=== PATIENT | female | born 1930 | race Caucasian/White ===

== ENCOUNTER → 2017-07-19 | Outpatient (CLI) | payer OTHER ==
[~2017-07-19] MED LIST: ANTIBIOTIC; ARICEPT 5 MG TAB5 MG PO; ASPIRIN EC81 M1 PO; CALCIUM 600 +1 EAC1 PO; CARDIZEM CD240 MG PO; CEFDINIR300 MG PO; CEFUROXIME500 MG PO; ELIQUIS5 MG PO; LASIX 40 MG TAB40 M2 PO; LEVOTHYROXINE100 MC1 PO; LOPRESSOR50 PO; LOVASTAT20 PO; PLAVIX 75 MG TA75 MG PO; POTASSIUM20 PO; PRAVACHOL40 MG PO; PRILOSEC 20 MG20 MG PO; PRINZIDE 20-121 EACH PO; PROCHAMBER1 EACH INH; SYMBICORT160 MCG/4. INH; TIROSINT75 MCG PO; ZYRTEC10 M5 PO; [UNRECOGNIZED DRUG - OTHER]
== END ==
LOC: M.RAD 11:41
DX: J45.40 Moderate persistent asthma, uncomplicated (principal)

== ENCOUNTER 2017-09-11 16:26 | Inpatient (IN) | payer OTHER ==
[~2017-09-11] VITALS: Ht 162.6 cm; Wt 75.7 kg
[~2017-09-11 16:26] MED LIST changes: -ANTIBIOTIC; -ARICEPT 5 MG TAB5 MG PO; -CEFDINIR300 MG PO; -CEFUROXIME500 MG PO; -PROCHAMBER1 EACH INH; -SYMBICORT160 MCG/4. INH; -[UNRECOGNIZED DRUG - OTHER]
[2017-09-11 16:30] VITALS: BP 149/87
--- NOTE | 2017-09-11 16:37 | NUR ---
PT STATES SHE LIVES BY HERSELF HER CHOICE, PT IS BROUGHT IN BY GEMA. STATES SHE HAS 2 SONS. GEMA SETS UP HER MEDS EVERYDAY AND NORMALLY PT DOES FINE PER PT AND FAMILY.
[2017-09-11 16:47] LABS: ABSOLUTE BASOPHILS 0.1 thou/uL (0.0-0.2); ABSOLUTE EOSINOPHILS 0.1 thou/uL (0.0-0.7); ABSOLUTE LYMPHOCYTES 1.5 thou/uL (0.8-5.3); ABSOLUTE NEUTROPHILS 5.5 thou/uL (1.6-8.1); BASOPHILS 1.2 %; EOSINOPHILS 1.2 %; HEMATOCRIT 41.9 % (37.0-47.0); HEMOGLOBIN 13.9 gm/dL (12.0-15.0); LYMPHOCYTES 18.4 %; MCH 29.1 pg (26.0-34.0); MCHC 33.2 g/dL (28.0-37.0); MCV 87.7 fL (80.0-100.0); MONOCYTES 11.9 %; MPV 12.9 fl. (7.2-11.1); NUCLEATED RBCS 0 /100WBC; PLATELET COUNT* 102 thou/uL (150-400); POLYS 67.3 %; RBC 4.78 mil/uL (4.20-5.00); RDW-CV 13.9 % (10.5-14.5); WBC 8.1 thou/uL (4.0-11.0)
[2017-09-11] MEDS ORDERED: PROCHAMBER1 EACH INH (16:50)
[2017-09-11] MEDS ORDERED: ANTIBIOTIC (16:51)
[2017-09-11] MEDS ORDERED: [UNRECOGNIZED DRUG - OTHER] (16:51)
[2017-09-11 16:56] LABS: ANION GAP 13 mmol/L (7-16); BUN 17 mg/dL (7-18); CALCIUM 8.9 mg/dL (8.5-10.1); CHLORIDE 99 mmol/L (98-107); CO2 25 mmol/L (21-32); CREATININE 1.5 mg/dL (0.6-1.3); GLUCOSE 115 mg/dL (70-99); POTASSIUM 3.4 mmol/L (3.5-5.1); SODIUM 137 mmol/L (136-145)
[2017-09-11 16:57] LABS: APTT 35.2 Seconds (25.0-31.3); INR 1.1; PROTIME 10.7 Seconds (9.20-11.50)
[2017-09-11 17:17] LABS: ALBUMIN 3.1 g/dL (3.4-5.0); ALKALINE PHOSPHATASE 117 U/L (46-116); CK-MB MASS 4.3 ng/mL (<0.5-3.6); NT-PRO BRAIN NAT PEPTIDE 2358 pg/mL (<300); SGOT 22 U/L (15-37); SGPT 16 U/L (30-65); TOTAL BILIRUBIN 0.9 mg/dL (<0.1-1.0); TOTAL PROTEIN 7.2 g/dL (6.4-8.2); TROPONIN-I LEVEL <0.06 ng/mL (<0.06)
[2017-09-11 18:10] VITALS: BP 153/92
[2017-09-11 18:15] VITALS: BP 143/81
--- NOTE | 2017-09-11 18:15 | NUR ---
RECEIVED REPORT. PT TRANSFERRED TO ROOM 205. VSS. CARDIAC MONTIORING IN PLACE AFIB RVR. CARDIZEM GTT TITRATED TO 10 ML/HR. ADMISSION HISTORY AND ASSESSMENT COMPELTED CHARTED. PT ALERT AND ORIENED X4 BUT FORGETFUL. PT ON RA. PT DENIES ANY COMPLAINTS OF PAIN OR DISCOMFORT. PT ORIENTED TO ROOM AND CALL LIGHT. FALL PRECATIONS IN PLACE. UA SENT. PT INFORMED OF PLAN OF CARE. WILL CONTINUE TO MONITOR FOR DURATION OF SHIFT.
[2017-09-11 18:56] LABS: URINE BILIRUBIN NEGATIVE (Negative); URINE BLOOD 2+ (Negative); URINE CLARITY CLEAR; URINE COLOR YELLOW; URINE GLUCOSE-RANDOM NEGATIVE (Negative); URINE KETONES NEGATIVE (Negative); URINE LEUKOCYTES-REFLEX 3+ (Negative); URINE NITRITE-REFLEX NEGATIVE (Negative); URINE PROTEIN 1+ (Negative); URINE SPECIFIC GRAVITY <= 1.005 (1.005-1.030); URINE UROBILINOGEN 0.2 E.U./dl (0.2-1.0)
[2017-09-11 19:02] LABS: SQUAMOUS 4-10 Moderate /LPF (0-3)
[2017-09-11 19:03] LABS: URINE WBC-REFLEX >25 Many /HPF (0-5)
[2017-09-11 19:04] LABS: BACTERIA-REFLEX >30 Many /HPF (None Seen)
[2017-09-11 19:06] LABS: CASTS None Seen /LPF (None Seen); CRYSTALS None Seen /LPF (None Seen); MUCUS None Seen strn/LPF (None Seen); URINE RBC 0-2 Rare /HPF (0-2)
[2017-09-11 19:40] VITALS: BP 149/81
[2017-09-12] VITALS (8 sets, daily range): BP systolic 112–136; BP diastolic 58–77
[2017-09-12 04:51] LABS: HEMATOCRIT 39.1 % (37.0-47.0); HEMOGLOBIN 13.1 gm/dL (12.0-15.0); MCH 29.1 pg (26.0-34.0); MCHC 33.4 g/dL (28.0-37.0); MCV 87.2 fL (80.0-100.0); MPV 12.9 fl. (7.2-11.1); RBC 4.48 mil/uL (4.20-5.00); RDW-CV 13.9 % (10.5-14.5); WBC 6.4 thou/uL (4.0-11.0)
[2017-09-12 05:06] LABS: CALCIUM 8.5 mg/dL (8.5-10.1); CREATININE 1.2 mg/dL (0.6-1.3); MAGNESIUM 1.8 mg/dL (1.8-2.4); POTASSIUM 3.5 mmol/L (3.5-5.1)
--- NOTE | 2017-09-12 06:08 | NUR ---
A&O X4. AFIB ON THE MONITOR. CARTIZEM DRIP AT 20. X1 ASSIST. SEE MAR. SEE CHARTING. VITALS WNL. FALL PRECAUTIONS IN PLACE. HOURLY ROUNDING FOR CHARTING.
--- NOTE | 2017-09-12 11:48 | EKG ---
[place] [address] ELECTROCARDIOGRAM REPORT Name: GAEL VIRGEN Room: [address] IN [facility]#: [id number] Admission: 09/11/17 Attend Phys: Andrés Bates MD Discharge: Date of : 34 Report #: [id number] THIS REPORT FOR: //name// [facility] ED Test Date: 2017-09-11 Test Time: 16:30:42 Pat Name: GAEL VIRGEN Department: Room: Gender: F Occupational Medicine Specialist: : [id number] Requested By: Delon Garg Order Number: [id number] MD: Cam Duncan Measurements Intervals [place] Rate: 173 P: [place]: QRS: 37 QRSD: 99 T: -30 QT: 286 QTc: 486 Interpretive Statements Atrial fibrillation with rapid V-rate Ventricular premature complex Repolarization abnormality, prob rate related Baseline wander in lead(s) V1,V2 Compared to ECG 02/22/2016 14:54:16 Ventricular premature complex(es) now present Early repolarization now present Left ventricular hypertrophy no longer present T-wave abnormality no longer present Electronically Signed On 09-12-2017 11:48:37 CDT by Cam Duncan [email or web address] <ELECTRONICALLY SIGNED> By: Cam Duncan MD, FAC 09/12/17 1148 1630 1630 Cam Duncan MD, [facility] /EPI
--- NOTE | 2017-09-12 11:56 | NUR ---
ASSUMED PT CARE AT 0730, FULL ASSESMENT DONE CHARTED, PT A/O X4, DENIES PAIN, PT AFIB ON MONITOR, RATE IN THE 110'S-130'S, CARDIZEM GTT AT 20MG/HR THIS AM, CARDIOLOGY CHANGED MEDS, CARDIZEM GTT DC'D AT APPROX 1115, PTS RATE IN THE 80'S AT THIS TIME. VSS, PT [place], LEGALLY BLIND, NEEDS ASSISTANCE TO AMBULATE. PT CALLS APPROPRIATLY, FALL PRECATUIOINS IN PLACE, WILL CONTINUE WITH PLAN OF CARE.
--- NOTE | 2017-09-12 13:48 | 2DMMODE ---
[place] [address] 2 D/M-MODE ECHOCARDIOGRAM Name: GAEL VIRGEN Room: [address] IN [facility]#: [id number] Admission: 09/11/17 Attend Phys: Andrés Bates, Discharge: Date of : 34 Date of Service: 09/12/17 1347 Report #: [id number] THIS REPORT FOR: //name// APPROVED REPORT Study performed: 09/12/2017 09:49:13 EXAM: Comprehensive 2D, Doppler, and color-flow Echocardiogram Patient Location: In-Patient Room #: [facility] Status: routine BSA: 1.81 HR: 108 bpm BP: 134/77 mmHg Rhythm: Atrial Fibrillation Other Information Study Quality: Good Indications Atrial Fibrillation 2D Dimensions LVEF(%): 78.22 (>50%) IVSd: 11.33 (7-11mm) LVOT Diam: 17.88 (18-24mm) LVDd: 29.26 mm PWd: 9.44 (7-11mm) Ascending Ao: 29.34 (22-36mm) LVDs: 16.00 (25-40mm) Aortic Root: 28.39 mm Hammer's LVEF: 78.22 % Volumes Left Atrial Volume (Systole) LA ESV Index: 42.90 mL/m2 Aortic Valve AoV Peak Abhi.: 1.28 m/s AO Peak Gr.: 6.53 mmHg LVOT Max P.11 mmHg AO Mean Gr.: 4.09 mmHg LVOT Mean P.44 mmHg LVOT Max V: 0.88 m/s AO V2 VTI: 24.84 cm LVOT Mean V: 0.54 m/s NANDO (VTI): 1.63 cm2 LVOT V1 VTI: 16.15 cm AI Wallace: 1.59 m/s2 AI PHT: 628.09 [place] [address] 2 D/M-MODE ECHOCARDIOGRAM Name: GAEL VIRGEN Room: [address] IN [facility]#: [id number] Admission: 09/11/17 Attend Phys: Andrés Bates, Discharge: Date of : 34 Date of Service: 09/12/17 1347 Report #: [id number] Mitral Valve MV Decel. Time: 116.96 ms MV PHT: 33.92 ms MVA (PHT): 6.49 cm2 TDI Medial E' Abhi.: 0.10 m/s Pulmonary Valve PV Peak Abhi.: 0.87 m/s PV Peak Gr.: 3.01 mmHg Tricuspid Valve TR Peak Gr.: 31.43 mmHg RVSP: 36.00 mmHg Left Ventricle The left ventricle is normal size. There is normal LV segmental wall motion. Moderate concentric left ventricular hypertrophy. Left ventricular systolic function is normal. The left ventricular ejection fraction is within the normal range. LVEF is 65-70%. This study is not technically sufficient to allow evaluation of the LV diastolic function due to atrial fibrillation. Right Ventricle The right ventricle is normal size. The right ventricular systolic function is normal. Atria Left atrium is moderately dilated. The right atrium size is normal. Aortic Valve Mild aortic valve sclerosis. Mild aortic regurgitation. Mild aortic stenosis. Mitral Valve There is mitral annular calcification,severe Mild mitral regurgitation. No evidence of mitral valve stenosis. Tricuspid Valve The tricuspid valve is normal in structure. Moderate tricuspid regurgitation. The RVSP is 35-40 mmHg. Pulmonic Valve The pulmonary valve is normal in structure. [place] [address] 2 D/M-MODE ECHOCARDIOGRAM Name: GAEL VIRGEN Room: [address]#: [id number] Admission: 09/11/17 Attend Phys: Andrés Bates, Discharge: Date of : 34 Date of Service: 09/12/17 1347 Report #: [id number] Great Vessels The aortic root is normal in size. IVC is normal in size and collapses with >50% inspiration Pericardium There is no pericardial effusion. <Conclusion> LVEF is 65-70%. There is normal LV segmental wall motion. Moderate concentric left ventricular hypertrophy. Left atrium is moderately dilated. Mild aortic stenosis. Mild aortic regurgitation. No evidence of mitral valve stenosis. Mild mitral regurgitation. <ELECTRONICALLY SIGNED> By: Cam Duncan MD, FACC 09/12/17 1347 46 46 Cam Duncan MD, FACC /INF
--- NOTE | 2017-09-12 14:29 | NUR ---
Pt is A&O. Resides at home alone in a community. Pt is independent with ADLs. No DME. Pt has been functioning at home well alone, prior to the past few days, when Pt apparently forgot to take her medications. Pt's niece is involved and in the room. Pt has 2 sons, but both live out of the area. Discussed disposition. Plan is for Pt to return home with paid care givers, to assist with medication mgmt during the day. CM provided Pt/niece with agency info. No hx of HH or SNF. Following.
--- NOTE | 2017-09-12 18:25 | NUR ---
ASSUMED CARE OF PATIENT AT THIS TIME. REPORT RECEIVED FROM RIGOBERTO PIERCE. PATIENT SETTLED TO ROOM. PATIENT DENIES ANT PAIN. PATIENT SITTING UP IN RECLINER WATCHING BASEBALL GAME. CALL LIGHT WITHIN REACH. WILL CONTINUE TO MONITOR.
--- NOTE | 2017-09-12 19:57 | NUR ---
PT TRANSFERED TO ROOM 310 AT APPROX 1800, REPORT GIVEN TO TORI PIERCE. PTS RATE CONTROLLED AT 70'S-80'S, STILL IN AFIB. PT USING CALL LIGHT TO USE THE BATHROOM. PT CONCERNED ABOUT STAYING AT HOSPITAL, EDUCATED THE PT ON THE PLAN OF CARE. PT VERBALIZED UNDERSTANDING.
[2017-09-13] VITALS (8 sets, daily range): BP systolic 115–156; BP diastolic 58–96
--- NOTE | 2017-09-13 03:20 | NUR ---
pt's bed alarm went off at this time. Tech and RN immediatley went to alarm and patient was already going down the dalton. As the tech and RN approached the patient, the patient turned around too fast and lost balance and fell onto the floor in the dalton. Pt was picked up by tech and RN and helped to the bathroom and back to bed. Vitals taken once in bed, and full assessment completed. vss- see chart. Assessment unchanged, but patient was complianing of pain in left hip and elbow. No change to patients mental/neuro status. Pt was confused and forgetful before fall. Tylenol given for pain. Dr Lassiter called after patient settled back in bed for additional orders. Pt's room is across from nurses station at this time. Door open, bed alarm on. Call light in reach. Will cont to monitor closely.
[2017-09-13 04:11] LABS: HEMATOCRIT 40.3 % (37.0-47.0); HEMOGLOBIN 13.3 gm/dL (12.0-15.0); MCH 28.6 pg (26.0-34.0); MCV 86.5 fL (80.0-100.0); MPV 12.9 fl. (7.2-11.1); RBC 4.66 mil/uL (4.20-5.00); RDW-CV 13.9 % (10.5-14.5); WBC 7.9 thou/uL (4.0-11.0)
[2017-09-13 04:28] LABS: CALCIUM 8.8 mg/dL (8.5-10.1); CREATININE 1.3 mg/dL (0.6-1.3); MAGNESIUM 1.7 mg/dL (1.8-2.4); POTASSIUM 3.8 mmol/L (3.5-5.1)
--- NOTE | 2017-09-13 07:09 | NUR ---
ATTEMPTED TO CONTACT AUTHORIZED CONTACT/NIECE TO UPDATE ON PATIENT INCIDENT OVER SHIFT- UNABLE TO REACH ANYONE AT THE NUMBER LISTED. THIS IS THE ONLY NUMBER LISTED FOR CONTACT. THE PATIENT IS UNSURE OF ANY ADDITIONAL NUMBERS THAT ANYONE COULD BE REACHED AT. THE NUMBER DID NOT HAVE A VOICEMAIL SET UP TO LEAVE A MESSAGE.
--- NOTE | 2017-09-13 14:52 | NUR ---
CM SPOKE TO RN IN-CHARGE OF PATIENT AND SHE INFORMS THAT THE PATIENT'S SONS WILL COME TO THE HOSPITAL TODAY TO DISCUSS SNF PLACEMENT AT D/C. CM LEFT A LIST OF SNF CHOICES IN THE PATIENT'S ROOM. CM WILL F/U WITH SON'S CHOICE OF SNF. CM WILL REMAIN AVAILABLE TO ASSIST AND FOLLOW NEEDED.
--- NOTE | 2017-09-13 18:17 | NUR ---
PATIENT HAS BEEN ALERT TODAY, VERY PLEASANT. UP WITH STAND BY ASSIST. VITAL SIGNS HAVE BEEN STABLE ON ROOM AIR. SOME COMPLAINTS OF PAIN THAT IS CONTROLLED WITH ORAL PAIN MEDICATIONS. CALL LIGHT IS IN REACH, CHAIR ALARM IS ON AND FAMILY HAS BEEN AT BEDSIDE MOST OF THE DAY. WILL CONTINUE TO MONITOR.
[2017-09-14] VITALS (7 sets, daily range): BP systolic 120–142; BP diastolic 60–84
[2017-09-14 04:41] LABS: HEMATOCRIT 41.9 % (37.0-47.0); HEMOGLOBIN 13.7 gm/dL (12.0-15.0); MCH 28.9 pg (26.0-34.0); MCHC 32.6 g/dL (28.0-37.0); MCV 88.6 fL (80.0-100.0); MPV 13.4 fl. (7.2-11.1); RBC 4.73 mil/uL (4.20-5.00); RDW-CV 13.9 % (10.5-14.5); WBC 7.8 thou/uL (4.0-11.0)
[2017-09-14 04:55] LABS: CALCIUM 8.7 mg/dL (8.5-10.1); CREATININE 1.4 mg/dL (0.6-1.3); MAGNESIUM 1.6 mg/dL (1.8-2.4); POTASSIUM 3.9 mmol/L (3.5-5.1)
--- NOTE | 2017-09-14 05:25 | NUR ---
ASSESSMENT COMPLETE. PT SLEPT MOST OF THE NIGHT. PT FORGETFUL AT HS. PT IS FALL RISK, BED ALARM ON. VITALS STABLE WITH ADEQUATE SATS ON ROOM AIR. PT ON MONITOR. PT DENIES PAIN. PT HAS IV, SALINE LOCKED AND FLUSHES WITHOUT DIFFICULTY. PT IS UP ONE ASSIST WITH WALKER TO BATHROOM. SEE ASSESSMENT AND VITALS FOR OTHER DETAILS. CALL LIGHT WITHIN REACH, WILL CONTINUE PLAN OF CARE
--- NOTE | 2017-09-14 12:58 | NUR ---
Spoke with Pt, son and granddaughter in room. Plan is for Pt to complete skilled then move to [facility] afterwards. Faxed referral to [facility], anticipate dc early next week. Awaiting decision to accept and insurance auth.
[2017-09-14] MEDS ORDERED: ARICEPT 5 MG TAB5 MG PO (16:48)
[2017-09-14] MEDS ORDERED: SYMBICORT160 MCG/4. INH (16:50)
[2017-09-14] MEDS ORDERED: CEFDINIR300 MG PO (16:51)
--- NOTE | 2017-09-14 19:14 | NUR ---
ASSUMED CARE THIS AM. A/O, SHORT TERM MEMORY DEFICIT NOTED. DENIES PAIN FROM FALL LAST WEEK. UP WITH GB/WALKER, SBA OF ONE, [place] AMBULATION TO BATHROOM. VSS, [place] THERAPY WELL. OCC URGE INCONTINENCE, FAMILY AT BEDSIDE, D/C PLAN TO TRANSFER TO POST-ACUTE UNIT, POSSIBLE LONG-TERM CARE, VISION PROHIBITS INDEPENDENT PATHWAY TO SAFETY.
[2017-09-15 03:44] LABS: HEMATOCRIT 41.6 % (37.0-47.0); HEMOGLOBIN 13.5 gm/dL (12.0-15.0); MCH 28.6 pg (26.0-34.0); MCHC 32.5 g/dL (28.0-37.0); MPV 12.7 fl. (7.2-11.1); RBC 4.72 mil/uL (4.20-5.00); WBC 8.3 thou/uL (4.0-11.0)
[2017-09-15 04:00] LABS: CALCIUM 8.1 mg/dL (8.5-10.1); CREATININE 1.2 mg/dL (0.6-1.3); MAGNESIUM 2.9 mg/dL (1.8-2.4)
--- NOTE | 2017-09-15 05:07 | NUR ---
PATIENT HAS BEEN RESTING ALL NIGHT, NO CONPLAINTS OF ANY KIND. FAMILY HERE AT TILL LATE IN THE EVENING. VITAL SIGNS ARE STABLE ON ROOM AIR. TELE DISCONTINUED TONIGHT PER ORDERS, LEADS HAD CAUSED SOME ITCHING. BED ALARM IS ON, CALL LIGHT IS IN REACH, WILL CONTINUE TO MONITOR.
[2017-09-15 08:00] VITALS: BP 116/72
[2017-09-15 16:23] VITALS: BP 117/64
--- NOTE | 2017-09-15 17:16 | NUR ---
RESUMED CARE THIS AM. DENIES PAIN, UP TO CHAIR MOST OF THIS SHIFT, SBA X 1 STAFF MEMBER WITH BED MOBILITY, TRANSFERS, AMBULATION. FAMILY AT BEDSIDE MOST OF THIS SHIFT, PATIENT TOLERANT OF NEWS THAT HER DOG IS MOVING TO [place]. CONT TO WORK TOWARD D/C PLANS OF TRANSFER TO [facility] FOR REHAB. CALL LIGHT IN REACH, CONT POC.
--- NOTE | 2017-09-16 05:38 | NUR ---
ASSESSMENT COMPLETE. PT SLEPT THROUGH THE NIGHT WITHOUT ANY CONCERNS. PT DENIES PAIN. PT IS ON ROOM AIR WITH ADEQUATE SATS. PT IS UP ONE ASSIST WITH WALKER TO BATHROOM. PT IS FALL RISK, BED ALARM ON. PT HAS STRESS INCONTINENCE, BRIEF IN PLACE. PT TURNS SELF IN BED DURING THE NIGHT. SEE ASSESSMENT AND VITALS FOR OTHER DETAILS. CALL LIGHT WITHIN REACH, WILL CONTINUE PLAN OF CARE
[2017-09-16 08:00] VITALS: BP 147/80
[2017-09-16 13:51] VITALS: BP 147/80
--- NOTE | 2017-09-16 13:52 | NUR ---
MARLEN discussed safe dc planning with pt and pt dtr. Plan for pt to dc to SNF today phone [phone] and [facility] admissions, Joselyn, called to accept and insurance authorization was received. Transportation scheduled for 15:30. SW provided dc information, med list to Joselyn at [facility]. SW answered questions about dc plan and pt future plans to transition to [facility]. Pt dtr stated pt wants pt dtr to make all decisions and handle all aspects of pt life. Pt dtr already has DPOA and MARLEN suggested pt dtr meet with pt industrial design intern to determine other legal documents that they may want to complete. No other known dc needs.
[2017-09-16] MEDS ORDERED: CEFUROXIME500 MG PO (15:39)
[2017-09-16 15:41] VITALS: BP 147/80
--- NOTE | 2017-09-16 18:36 | NUR ---
RESUMED CARE THIS AM, SEE ASSESSMENT FOR DETAILS. D/C ORDERS RECEIVED, IV ACCESS DISCONTINUED, REPORT GIVEN TO STAN MILTON. PERSONAL EFFECTS GATHERED AND ACCOUNTED FOR, PATIENT TRANSPORTED [facility]IA [facility] TO [facility] IN STABLE CONDITION.
== END 2017-09-16 17:30 | DRG 308 ==
LOC: M.ERS 16:26 → M.2W 17:19 → M.TBA-ER 17:19 → M.2W 18:18 → M.3W 09-12 18:32
PROVIDERS: Family Medicine; ADMIT Internal Medicine
DX: I48.91 Unspecified atrial fibrillation (principal); G92 Toxic encephalopathy; R65.11 Systemic inflammatory response syndrome (SIRS) of non-infectious origin with acute organ dysfunction; I50.31 Acute diastolic (congestive) heart failure; S32.592A Other specified fracture of left pubis, initial encounter for closed fracture; N39.0 Urinary tract infection, site not specified; I13.0 Hypertensive heart and chronic kidney disease with heart failure and stage 1 through stage 4 chronic kidney disease, or unspecified chronic kidney disease; H54.8 Legal blindness, as defined in USA; E87.6 Hypokalemia; E83.42 Hypomagnesemia; R26.9 Unspecified abnormalities of gait and mobility; N18.3 Chronic kidney disease, stage 3 (moderate); Z96.651 Presence of right artificial knee joint; E78.00 Pure hypercholesterolemia, unspecified; E03.9 Hypothyroidism, unspecified; K21.9 Gastro-esophageal reflux disease without esophagitis; X58.XXXA Exposure to other specified factors, initial encounter; Y93.89 Activity, other specified; Y92.89 Other specified places as the place of occurrence of the external cause; Y99.8 Other external cause status; Z86.73 Personal history of transient ischemic attack (TIA), and cerebral infarction without residual deficits; Z90.12 Acquired absence of left breast and nipple; Z79.899 Other long term (current) drug therapy; Z88.8 Allergy status to other drugs, medicaments and biological substances

== ENCOUNTER → 2018-03-24 | Outpatient (CLI) | payer OTHER ==
[~2018-03-24] MED LIST changes: +ANTIBIOTIC; +ARICEPT 5 MG TAB5 MG PO; +CEFDINIR300 MG PO; +CEFUROXIME500 MG PO; +PROCHAMBER1 EACH INH; +SYMBICORT160 MCG/4. INH; +[UNRECOGNIZED DRUG - OTHER]
== END ==
LOC: M.RAD 03-21 10:40 → M.ULTRA 09:37
DX: I51.7 Cardiomegaly (principal); R60.0 Localized edema; R06.02 Shortness of breath

== ENCOUNTER → 2018-08-05 | Outpatient (CLI) | payer OTHER ==
--- NOTE | 2018-08-05 13:48 | 2DMMODE ---
[place] [address] 2 D/M-MODE ECHOCARDIOGRAM Name: GAEL VIRGEN Room: [facility]#: [id number] Admission: 08/05/18 Attend Phys: Hannah De Jesus Discharge: Date of : 34 Date of Service: 08/05/18 1347 Report #: [id number] THIS REPORT FOR: //name// APPROVED REPORT Study performed: 08/05/2018 12:46:07 EXAM: Comprehensive 2D, Doppler, and color-flow Echocardiogram Patient Location: Out-Patient BSA: 1.83 HR: 85 bpm BP: 130/80 mmHg Other Information Study Quality: FairGood Indications Atrial Fibrillation Hypertension/HDD 2D Dimensions IVSd: 10.30 (7-11mm) LVOT Diam: 18.94 (18-24mm) LVDd: 40.33 mm PWd: 8.77 (7-11mm) Ascending Ao: 26.41 (22-36mm) LVDs: 35.68 (25-40mm) Aortic Root: 28.27 mm Volumes Left Atrial Volume (Systole) LA ESV Index: 46.00 mL/m2 Aortic Valve AoV Peak Abhi.: 1.05 m/s AO Peak Gr.: 4.42 mmHg LVOT Max P.91 mmHg AO Mean Gr.: 2.61 mmHg LVOT Mean P.95 mmHg LVOT Max V: 0.69 m/s AO V2 VTI: 17.90 cm LVOT Mean V: 0.46 m/s NANDO (VTI): 1.96 cm2 LVOT V1 VTI: 12.48 cm AI [place]: 1.38 m/s2 AI PHT: 750.21 ms Mitral Valve ERO: 3.19 mm2 E/A Ratio: 3.88 [place] [address] 2 D/M-MODE ECHOCARDIOGRAM Name: GAEL VIRGEN Room: [facility]#: [id number] Admission: 08/05/18 Attend Phys: Hannah De Jesus Discharge: Date of : 34 Date of Service: 08/05/18 1347 Report #: [id number] MV Decel. Time: 194.76 ms MV E Max Abhi.: 1.03 m/s PISA: 0.50 cm MR Radius: 0.28 cm MV PHT: 56.48 ms MVA (PHT): 3.90 cm2 TDI E/Lateral E': 9.36 E/Medial E': 11.44 Medial E' Abhi.: 0.09 m/s Lateral E' Abhi.: 0.11 m/s Pulmonary Valve PV Peak Abhi.: 0.94 m/s PV Peak Gr.: 3.54 mmHg Tricuspid Valve RAP Estimate: 15.00 mmHg TR Peak Gr.: 39.98 mmHg RVSP: 54.98 mmHg PA Pressure: 54.98 mmHg Left Ventricle The left ventricle is normal size. Paradoxical septal motion.Otherwise, regional wall motion is normal. Mild concentric left ventricular hypertrophy. Left ventricular systolic function is normal. The left ventricular ejection fraction is within the normal range. LVEF is 60%. Severe diastolic dysfunction is present (restrictive filling). Right Ventricle Right ventricle is dilated. The right ventricular systolic function is normal. Atria Left atrium is moderately dilated. Right atrium is moderately dilated. Aortic Valve Aortic valve leaflets are mildly thickened. Trace aortic regurgitation. No aortic stenosis. Mitral Valve There is mitral annular calcification. Mitral valve leaflets are mildly calcified. Mild to moderate mitral regurgitation. No evidence of mitral valve stenosis. [place] [address] 2 D/M-MODE ECHOCARDIOGRAM Name: VIRGENGAEL Luiz Room: [facility]#: [id number] Admission: 08/05/18 Attend Phys: Hannah De Jesus Discharge: Date of : 34 Date of Service: 08/05/18 1347 Report #: [id number] The tricuspid valve is normal in structure. Moderate to severe tricuspid regurgitation.PAP 40mmhg Pulmonic Valve The pulmonary valve is normal in structure. Trace pulmonic regurgitation. Great Vessels The aortic root is normal in size. IVC is dilated. Pericardium There is no pericardial effusion. <Conclusion> Mild concentric left ventricular hypertrophy. LVEF is 60%. Paradoxical septal motion.Otherwise, regional wall motion is normal. Severe diastolic dysfunction is present (restrictive filling). Left atrium is moderately dilated. Right atrium is moderately dilated. Aortic valve leaflets are mildly thickened. No aortic stenosis. Trace aortic regurgitation. No evidence of mitral valve stenosis. Mild to moderate mitral regurgitation. There is mitral annular calcification. Mitral valve leaflets are mildly calcified. Moderate to severe tricuspid regurgitation. PAP 40mmhg <ELECTRONICALLY SIGNED> By: Cam Duncan MD, FACC 08/05/18 1347 134 134 Cam Duncan MD, FACC /INF
== END ==
LOC: M.CRD 07-08 08:00
DX: I08.1 Rheumatic disorders of both mitral and tricuspid valves (principal); I48.2 Chronic atrial fibrillation; I10 Essential (primary) hypertension; Z88.8 Allergy status to other drugs, medicaments and biological substances; Z88.1 Allergy status to other antibiotic agents

== ENCOUNTER 2018-08-28 22:18 | Emergency (ER) | payer OTHER ==
[~2018-08-28] VITALS: Ht 165.1 cm; Wt 76.7 kg
[2018-08-28] MEDS ORDERED: COLESTID5 GM PO (22:33)
[2018-08-28] MEDS ORDERED: PROAIR HFA8.5 GM (22:33)
[2018-08-29 01:23] VITALS: BP 166/71
== END 2018-08-29 01:23 | disposition home or self-care (01) ==
LOC: M.ERS 22:18
DX: S80.02XA Contusion of left knee, initial encounter (principal); M25.522 Pain in left elbow; I12.9 Hypertensive chronic kidney disease with stage 1 through stage 4 chronic kidney disease, or unspecified chronic kidney disease; N18.3 Chronic kidney disease, stage 3 (moderate); E78.00 Pure hypercholesterolemia, unspecified; I48.91 Unspecified atrial fibrillation; Z90.12 Acquired absence of left breast and nipple; Z96.651 Presence of right artificial knee joint; Z86.73 Personal history of transient ischemic attack (TIA), and cerebral infarction without residual deficits; W01.0XXA Fall on same level from slipping, tripping and stumbling without subsequent striking against object, initial encounter; Y93.89 Activity, other specified; Y92.89 Other specified places as the place of occurrence of the external cause; Y99.8 Other external cause status

== ENCOUNTER 2018-10-02 10:14 | Inpatient (IN) | payer OTHER ==
[~2018-10-02] VITALS: Ht 165.1 cm; Wt 70.8 kg
[2018-10-02] VITALS (8 sets, daily range): BP systolic 119–140; BP diastolic 58–84
[~2018-10-02 10:14] MED LIST changes: +COLESTID5 GM PO; +PROAIR HFA8.5 GM
[2018-10-02 10:54] LABS: ABSOLUTE BASOPHILS 0.1 thou/uL (0.0-0.2); ABSOLUTE EOSINOPHILS 0.2 thou/uL (0.0-0.7); ABSOLUTE LYMPHOCYTES 2.3 thou/uL (0.8-5.3); ABSOLUTE MONOCYTES 0.9 thou/uL (0.0-1.2); ABSOLUTE NEUTROPHILS 5.4 thou/uL (1.6-8.1); BASOPHILS 1.4 %; HEMOGLOBIN 12.1 gm/dL (12.0-15.0); LYMPHOCYTES 25.8 %; MCH 27.1 pg (26.0-34.0); MCHC 31.8 g/dL (28.0-37.0); MCV 85.3 fL (80.0-100.0); MONOCYTES 9.7 %; MPV 12.1 fl. (7.2-11.1); NUCLEATED RBCS 0 /100WBC; PLATELET COUNT* 125 thou/uL (150-400); POLYS 61.1 %; RBC 4.46 mil/uL (4.20-5.00); RDW-CV 14.8 % (10.5-14.5); WBC 8.8 thou/uL (4.0-11.0)
[2018-10-02 11:02] LABS: ANION GAP 10 mmol/L (7-16); BUN 24 mg/dL (7-18); CALCIUM 8.7 mg/dL (8.5-10.1); CHLORIDE 108 mmol/L (98-107); CO2 26 mmol/L (21-32); CREATININE 1.2 mg/dL (0.6-1.3); GLUCOSE 65 mg/dL (70-99); POTASSIUM 4.2 mmol/L (3.5-5.1); SODIUM 144 mmol/L (136-145)
[2018-10-02 11:14] LABS: ALBUMIN 3.2 g/dL (3.4-5.0); ALKALINE PHOSPHATASE 154 U/L (46-116); NT-PRO BRAIN NAT PEPTIDE 2596 pg/mL (<300); SGOT 31 U/L (15-37); SGPT 39 U/L (30-65); TOTAL BILIRUBIN 0.5 mg/dL (<0.1-1.0); TOTAL PROTEIN 5.9 g/dL (6.4-8.2); TROPONIN-I LEVEL <0.06 ng/mL (<0.06)
--- NOTE | 2018-10-02 12:20 | NUR ---
ER ADMIT TO RM 210 VIA CART TELEPHONE REPORT GIVEN PROIR TO ARRIVAL PATIENT ASSISTED TO BED AND ORIENTED TO RM AND CALL LIGHT DENIES DIZZINESS AT THIS TIME ALSO DENIES PAIN ASSMT AND HX TO BE COMPLETED PATIENT INSTRUCTED NOT TO GET UP WITHOUT ASSISTANCE
[2018-10-02] MEDS ORDERED: ELIQUIS5 MG PO (15:21)
[2018-10-02] MEDS ORDERED: LOPRESSOR100 M1 PO (15:23)
[2018-10-02] MEDS ORDERED: SYMBICORT80 MCG/4.1 INH (15:25)
[2018-10-02] MEDS ORDERED: PRESERVISION T1 EACH PO (15:28)
--- NOTE | 2018-10-02 15:40 | EKG ---
[place] [address] ELECTROCARDIOGRAM REPORT Name: GAEL VIRGEN Room: [address] ADM IN [facility].#: [id number] Admission: 10/02/18 Attend Phys: Hannah Chen Discharge: Date of : 34 Report #: [id number] THIS REPORT FOR: //name// [facility] ED Test Date: 2018-10-02 Test Time: 10:22:08 Pat Name: GAEL VIRGEN Department: Room: [facility] Gender: F Area Sales Manager: [place] : 1930 Requested By: Jerry Oreilly Order Number: [id number] MD: Leroy Pappas Measurements Intervals [place] Rate: 107 P: [place]: QRS: 64 QRSD: 88 T: 3 QT: 353 QTc: 471 Interpretive Statements Atrial fibrillation Borderline T abnormalities, inferior leads Compared to ECG 09/11/2017 16:30:42 Ventricular premature complex(es) no longer present rate slowed Electronically Signed On 10-02-2018 15:40:46 CDT by Leroy Pappas [email or web address] <ELECTRONICALLY SIGNED> By: Leroy Pappas MD, [facility] 10/02/18 1540 1022 1022 Leroy Pappas MD, [facility] /EPI
[2018-10-03] VITALS (7 sets, daily range): BP systolic 116–151; BP diastolic 52–80
--- NOTE | 2018-10-03 04:51 | NUR ---
ASSUMED PT CARE AT
--- NOTE | 2018-10-03 04:54 | NUR ---
ASSUMED PT CARE AT 1915. 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 C/O FEELING LIGHTHEADED, DIZZY, AND SOB WHEN STANDING AND AMBULATING. ORTHOSTATIC BP'S X1 THIS SHIFT. SEE VS FOR DOCUMENTATION. HIGH FALL PRECAUTIONS IN PLACE, CALL LIGHT WITHIN REACH.
--- NOTE | 2018-10-03 07:30 | NUR ---
ASSUMED CARE OF PT ASSESSED AND DOCUMENTED. PT IS ON CARDIAC MONITER TRACING A-FIB HR 130. PT IS A&O WITH NO C/O PAIN, PT IS ON ROOM AIR & IS AFEBRILE. SHE HAS ON A L LIMB ALERT. BED IS IN LOW POSITION CALL LIGHTIS IN REACH. .
[2018-10-03 11:41] LABS: CALCIUM 8.6 mg/dL (8.5-10.1); CREATININE 1.2 mg/dL (0.6-1.3); MAGNESIUM 1.7 mg/dL (1.8-2.4); POTASSIUM 3.8 mmol/L (3.5-5.1)
--- NOTE | 2018-10-03 15:47 | NUR ---
Pt is A&O. Resides at [facility]. Pt is ambulatory with a walker. Staff prepare meals, complete cleaning and assist with bathing and grooming as needed. No hx of HH. Hx of skilled at [facility]. Supportive family. Goal is home at de. Following.
--- NOTE | 2018-10-03 17:08 | NUR ---
PT HAS RESTED IN HER ROOM TALKING ON THE PHONE AND WATCHING TV. HELD AFTERNOON LASIK PER VO FROM DR ORO. THE ONLY CONCERN PT HAS HAD THIS SHIFT IS FOR HER DOG. SHE IS EMOTIONAL AND HAS AN UNDERSTANDABLY HARD TIME WITH THIS. EDUCATION GIVEN ON DEMAND. HOURLY ROUNDING CONTINUES.
--- NOTE | 2018-10-03 17:43 | CON ---
[address] [address] CONSULTATION Name: GAEL VIRGEN Room: [address] IN [facility].#: [id number] Admission: 10/02/18 Attend Phys: Hannah Chen Discharge: Date of : 34 Report #: [id number] THIS REPORT FOR: //name// CC: Pepper Roldan INDICATION: Atrial fibrillation with rapid ventricular response rate and acute diastolic heart failure. HISTORY OF PRESENT ILLNESS: The patient presented to the Emergency Room with complaints of lightheadedness and shortness of breath that have been going on for 1-2 weeks. The patient states that anytime she gets up, she begins to feel fairly lightheaded and breathless forcing her to sit down or abandon whatever task she was trying to accomplish. She is not having chest pain. By telemetry monitoring, she has atrial fibrillation with a slightly fast ventricular response rate. Evaluation of x-ray and lab suggests acute diastolic heart failure. She has a history of chronic diastolic heart failure. She is without other cardiac complaint at this time. Since being hospitalized, she has been given some Lasix with diuresis. She has been in bed most of the time, but is not complaining of any new symptoms. PAST MEDICAL HISTORY: 1. Diastolic heart failure. 2. Chronic atrial fibrillation. 3. Grade 3 renal insufficiency. 4. Hypertension. 5. Hyperlipidemia. 6. TIA in 02/2016. 7. Right knee replacement in 2009. 8. 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 10. Previous right posterior strokes. 11. Asthma. HOME MEDICATIONS: Albuterol inhaler as directed, diltiazem 240 mg daily, omeprazole 20 mg b.i.d., aspirin 81 mg daily, metoprolol tartrate 50 mg b.i.d., potassium chloride 20 mEq daily, furosemide 40 mg daily, Zyrtec 10 mg daily, Caltrate with vitamin D one tablet daily, Synthroid 100 mcg half a tablet daily, Colestid 1 gram b.i.d., Eliquis 5 mg b.i.d., and pravastatin 40 mg daily. ALLERGIES: Prevacid, which causes diarrhea. FAMILY HISTORY: Noncontributory. PHYSICAL EXAMINATION: VITAL SIGNS: Blood pressure is 138/84, pulse is in the 80s and irregular. GENERAL: This is a pleasant elderly female who [place] [address] CONSULTATION Name: GAEL VIRGEN Room: [address]#: [id number] Admission: 10/02/18 Attend Phys: Hannah Chen Discharge: Date of : 34 Report #: [id number] affect appropriate. HEENT: Extraocular muscles intact. Head is normocephalic, atraumatic. NECK: Shows no jugular venous distention. There are no carotid bruits. CHEST: Reveals diminished breath sounds in the bases. CARDIAC: Reveals an irregularly irregular rhythm without gallop or murmur. ABDOMEN: Reveals normal bowel sounds. The abdomen is soft, nontender. EXTREMITIES: Shows 2+ edema of the left lower extremity, 1+ edema of the right lower extremity. SKIN: Warm, dry. LABORATORY DATA: A 12-lead EKG shows atrial fibrillation with a slightly fast ventricular response rate. There are some nonspecific T-wave inversions in the inferior leads. Labs are reviewed. Sodium 144, potassium 4.2, chloride 108, bicarbonate 26, BUN 24, creatinine 1.2, serum glucose 65, AST 31, total bilirubin 0.5, calcium 8.7, magnesium 2.9, alkaline phosphatase 154, ALT 39, total protein 5.9, and albumin 3.2. EGFR is 43. Troponin is less than 0.06 on 3 separate occasions. NT-proBNP is 2596. White blood cell count is 8.8, hemoglobin 12.1, and platelet count 125,000. IMPRESSION AND RECOMMENDATIONS: 1. Acute on chronic diastolic heart failure. Agree with diuresis with IV Lasix. We will follow I's and O's. 2. Atrial fibrillation with rapid ventricular response rate. We will adjust rate response medicines with possibly increasing her diltiazem. Continue Eliquis for anticoagulation. 3. Hypercoagulable state due to atrial fibrillation. Continue anticoagulation. 4. Mild malnutrition with albumin of 2.9. Encourage p.o. intake. 5. Possible orthostasis. We will check orthostatic blood pressures. Recommend physical therapy. <ELECTRONICALLY SIGNED> By: Song Sousa MD, FACC 10/03/18 1743 1624 [id number] Sousa MD, FACC /nt
[2018-10-04] VITALS: BP 127/65
[2018-10-04 03:58] VITALS: BP 140/72
[2018-10-04 03:59] VITALS: BP 140/64
[2018-10-04 04:00] VITALS: BP 137/78
--- NOTE | 2018-10-04 05:33 | NUR ---
ASSUMED CARE OF PT AFTER REPORT AT 1930. PT A&OX4. FORGETFUL. VSS. PHYSICAL ASSESSMENT COMPLETED AND CHARTED. PT ON RA. PT TRACING AFIB/PVC/SVT WHEN UP ON TELE. PT UPSTANDBY TO RESTROOM. ORTHOSTATICS CHARTED. PT DENIES ANY PAIN OR DISCOMFORT. PT RESTED WELL ON BED. CALL LIGHT WITHIN REACH.
[2018-10-04 08:45] VITALS: BP 139/76
--- NOTE | 2018-10-04 08:45 | NUR ---
REC'D REPORT FROM NOC RN, ASSUMED CARE OF PATIENT APPROX 0730. ORIENTED TO SELF AND SITUATION, FORGETFUL. ASSESSMENT COMPLETED, VS OBTAINED. 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 O2 SAT 95% RA. BED ALARM IN USE FOR IMPULSIVE PATIENT WITH URINARY URGENCY. CALL LIGHT IN REACH. FREQUENT CHECKS FOR PATIENT WITH LOW VISION.
[2018-10-04 11:54] VITALS: BP 117/52
== END 2018-10-04 16:08 | disposition home or self-care (01) | DRG 291 ==
LOC: M.ERS 10:14 → M.2W 11:50 → M.TBA-ER 11:50 → M.2W 12:24
PROVIDERS: Emergency Medicine Emergency Medical Services; ADMIT Internal Medicine
DX: I13.0 Hypertensive heart and chronic kidney disease with heart failure and stage 1 through stage 4 chronic kidney disease, or unspecified chronic kidney disease (principal); I50.33 Acute on chronic diastolic (congestive) heart failure; D68.59 Other primary thrombophilia; E44.1 Mild protein-calorie malnutrition; Z96.651 Presence of right artificial knee joint; E78.5 Hyperlipidemia, unspecified; J45.909 Unspecified asthma, uncomplicated; I48.2 Chronic atrial fibrillation; N18.3 Chronic kidney disease, stage 3 (moderate); E03.9 Hypothyroidism, unspecified; I25.10 Atherosclerotic heart disease of native coronary artery without angina pectoris; Z90.12 Acquired absence of left breast and nipple; Z86.73 Personal history of transient ischemic attack (TIA), and cerebral infarction without residual deficits; Z88.8 Allergy status to other drugs, medicaments and biological substances; Z79.899 Other long term (current) drug therapy; Z79.82 Long term (current) use of aspirin; Z79.890 Hormone replacement therapy; Z68.26 Body mass index [BMI] 26.0-26.9, adult

== ENCOUNTER 2018-10-08 13:00 | Inpatient (IN) | payer OTHER ==
[~2018-10-08] VITALS: Ht 162.6 cm; Wt 73.9 kg
[~2018-10-08 13:00] MED LIST changes: +LOPRESSOR100 M1 PO; +PRESERVISION T1 EACH PO; +SYMBICORT80 MCG/4.1 INH
[2018-10-08 13:08] VITALS: BP 110/59
[2018-10-08] MEDS ORDERED: TYLENOL EXTRA500 MG PO (13:08)
[2018-10-08] MEDS ORDERED: PROAIR RESPICL90 MCG INH (13:08)
[2018-10-08] MEDS ORDERED: MELATONIN5 M1 PO (13:08)
[2018-10-08] MEDS ORDERED: CARDIZEM CD120 MG PO (13:09)
[2018-10-08] MEDS ORDERED: LASIX 20 MG TAB20 MG PO (13:09)
--- NOTE | 2018-10-08 13:14 | NUR ---
PT DPOA CONTACTED AND PERMISSION GIVEN TO TREAT PT.
[2018-10-08 13:20] LABS: HEMATOCRIT 39.6 % (37.0-47.0); HEMOGLOBIN 12.6 gm/dL (12.0-15.0); MCH 26.8 pg (26.0-34.0); MCV 83.9 fL (80.0-100.0); MPV 11.6 fl. (7.2-11.1); NUCLEATED RBCS 0 /100WBC; PLATELET COUNT* 116 thou/uL (150-400); RBC 4.72 mil/uL (4.20-5.00); RDW-CV 14.3 % (10.5-14.5); WBC 21.4 thou/uL (4.0-11.0)
[2018-10-08 13:28] LABS: APTT 27.3 Seconds (25.0-31.3); INR 1.1; PROTIME 11.1 Seconds (9.20-11.50)
[2018-10-08 13:34] LABS: URINE BLOOD NEGATIVE (Negative); URINE CLARITY CLEAR; URINE COLOR YELLOW; URINE GLUCOSE-RANDOM NEGATIVE (Negative); URINE KETONES 1+ (Negative); URINE LEUKOCYTES-REFLEX 1+ (Negative); URINE NITRITE-REFLEX NEGATIVE (Negative); URINE PROTEIN TRACE (Negative); URINE SPECIFIC GRAVITY 1.015 (1.005-1.030)
[2018-10-08 13:38] LABS: ICTOTEST (BILI CONFIRMATORY) Negative (Negative); URINE BILIRUBIN 1+ (Negative)
[2018-10-08 13:45] LABS: ANION GAP 13 mmol/L (7-16); BUN 20 mg/dL (7-18); CALCIUM 8.3 mg/dL (8.5-10.1); CHLORIDE 104 mmol/L (98-107); CO2 24 mmol/L (21-32); CREATININE 1.3 mg/dL (0.6-1.3); GLUCOSE 128 mg/dL (70-99); SODIUM 141 mmol/L (136-145)
[2018-10-08 13:50] LABS: SQUAMOUS >10 Many /LPF (0-3); WBC CLUMPS Few (None Seen)
[2018-10-08 13:51] LABS: BACTERIA-REFLEX >30 Many /HPF (None Seen); CASTS None Seen /LPF (None Seen); CRYSTALS None Seen /LPF (None Seen); MUCUS 0-3 Light strn/LPF (None Seen); URINE RBC None Seen /HPF (0-2)
[2018-10-08 13:53] LABS: POTASSIUM 2.9 mmol/L (3.5-5.1)
[2018-10-08 14:00] LABS: ALBUMIN 2.7 g/dL (3.4-5.0); ALKALINE PHOSPHATASE 156 U/L (46-116); NT-PRO BRAIN NAT PEPTIDE 5238 pg/mL (<300); SGOT 21 U/L (15-37); SGPT 20 U/L (30-65); TOTAL BILIRUBIN 0.9 mg/dL (<0.1-1.0); TOTAL PROTEIN 5.9 g/dL (6.4-8.2); TROPONIN-I LEVEL <0.06 ng/mL (<0.06)
[2018-10-08 14:09] LABS: ABSOLUTE BASOPHILS 0.2 thou/uL (0.0-0.2); ABSOLUTE LYMPHOCYTES 0.4 thou/uL (0.8-5.3); ABSOLUTE MONOCYTES 1.1 thou/uL (0.0-1.2); ABSOLUTE NEUTROPHILS 19.7 thou/uL (1.6-8.1); METAMYELOCYTES 1 %
[2018-10-08 14:10] LABS: PLATELET ESTIMATE DECREASED
--- NOTE | 2018-10-08 15:41 | EKG ---
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: ROBSON Kimbrough : 1930 Requested By: Delon Garg Order Number: [id number] MD: Leory Pappas Measurements Intervals [place] Rate: 147 P: CO: QRS: 49 QRSD: 91 T: -5 QT: 306 QTc: 479 Interpretive Statements Atrial fibrillation with rapid V-rate Borderline T abnormalities, inferior leads Compared to ECG 10/02/2018 10:22:08 rate increased Electronically Signed On 10-08-2018 15:41:29 CDT by Leroy Pappas [email or web address] <ELECTRONICALLY SIGNED> By: Leroy Pappas MD, [facility] 10/08/18 1541 1308 [id number] Leroy Pappas MD, [facility] /EPI
[2018-10-08 17:15] VITALS: BP 102/48
[2018-10-08 18:00] VITALS: BP 121/56
--- NOTE | 2018-10-08 19:44 | NUR ---
VSS, ASSUMED CARE OF PT FROM ER, PT IS ON RA, UP WITH ONE, AFIB ON MONITOR, CARDIZEM DRIP AT 5. PT IS A&O3-4 AND CALL LIGHT IN REACH AND FALL PRECAUTIONS IN PLACE.
[2018-10-08 20:12] VITALS: BP 134/68
[2018-10-08 20:32] VITALS: BP 116/59
[2018-10-08 21:25] VITALS: BP 135/66
[2018-10-09] VITALS (10 sets, daily range): BP systolic 86–141; BP diastolic 34–78
[2018-10-09 00:52] LABS: HEMATOCRIT 33.9 % (37.0-47.0); HEMOGLOBIN 10.9 gm/dL (12.0-15.0); MCH 27.1 pg (26.0-34.0); MCHC 32.3 g/dL (28.0-37.0); MCV 84.1 fL (80.0-100.0); MPV 12.1 fl. (7.2-11.1); RBC 4.03 mil/uL (4.20-5.00); RDW-CV 14.5 % (10.5-14.5); WBC 21.5 thou/uL (4.0-11.0)
[2018-10-09 01:07] LABS: CREATININE 1.2 mg/dL (0.6-1.3); POTASSIUM 4.7 mmol/L (3.5-5.1); TROPONIN-I LEVEL 0.09 ng/mL (<0.06)
--- NOTE | 2018-10-09 07:00 | NUR ---
PT AWAKE MOST OF SHIFT. ASSESSMENT DOCUMENTED. MEDS GIVEN PER E-JUL. IV PATENT. CARDIZEM DRIP RUNNING AT BEGINGING OF THIS SHIFT, TITRATED UP TO 15 TO KEEP RATE BELOW 100. PTS BLOOD PRESSURE BECAME LOW, DRIP TURNED OFF FOR 30 MIN UNTIL BP CAME UP. WHEN TURNED BACK ON TO 5, PTS BP DROPPED AGAIN, NOTIFIED ORDERS RECIEVED. PT POSITIVE FOR SEVERE SEPSIS, NOTIFIED. PT BECOMING WHEEZY. FLUIDS DECREASED PER ORDERS. PT REPORTING LEFT SIDED JAW PAIN, NOTIFIED. WILL CONTINUE WITH PLAN OF CARE.
--- NOTE | 2018-10-09 11:36 | EKG ---
[place] [address] ELECTROCARDIOGRAM REPORT Name: GAEL VIRGEN Room: [address] ADM IN ..#: [id number] Admission: 10/08/18 Attend Phys: Hannah Friedman Discharge: Date of : 34 Report #: [id number] THIS REPORT FOR: //name// [facility] Test Date: 2018-10-08 Test Time: 23:59:55 Pat Name: GAEL VIRGEN Department: Room: [address] Gender: F Display Maker: : 1930 Requested By: Machelle Cordon Order Number: [id number] Reading MD: Cam Duncan Measurements Intervals [place] Rate: 95 P: SD: QRS: 50 QRSD: 88 T: 29 QT: 394 QTc: 496 Interpretive Statements Atrial fibrillation Ventricular premature complex Borderline prolonged QT interval Compared to ECG 10/08/2018 13:08:21 Ventricular premature complex(es) now present T-wave abnormality no longer present Electronically Signed On 10-09-2018 11:35:49 CDT by Cam Duncan [email or web address] <ELECTRONICALLY SIGNED> By: Cam Duncan MD, [facility] 10/09/18 1135 [id number] Cam Duncan MD, [facility] /EPI
--- NOTE | 2018-10-09 16:00 | NUR ---
VSS, ASSUMED CARE IN THE AM, ASSESSMENT PERFORMED AND CHARTED, FALL PRECAUTIONS IN PLACE AND CALL LIGHT IN REACH, PT IS A&O4 UP WITH STAND BY ASSIST, ON RA AND IS TRACING AFIB ON THE MONITOR, PT STATES PAIN IN HER TEETH. PT GOAL IS TO SIT UP IN CHAIR WALK TO BATHROOM AND LOWER HER HEART RATE, WILL FOLLOW WITH PLAN OF CARE, AND AT THIS TIME ALL GOALS HAVE BEEN MET,,
--- NOTE | 2018-10-09 16:41 | NUR ---
SW met with pt and pt niece to complete initial assessment, introduce self, and SW role. Pt alert, oriented, hard of hearing. Pt lives in ILF at [facility]. Pt has RW, hx of V and hx of [facility]. Pt and pt niece want to request HH services at dc and SW also discussed possible Palliative Care or Hospice eventually to be of support as well. [facility] received information as referral from [facility] and SW explained this to pt niece who was receptive to the options. Pt niece agreeable to provide transportation at dc if pt is ready right when pt niece arrives to be picked up; otherwise, pt niece said she would request a wc van. SW to continue to follow to assist with safe dc planning.
[2018-10-10] VITALS: BP 157/70
[2018-10-10 04:00] VITALS: BP 139/76
[2018-10-10 04:41] LABS: HEMATOCRIT 33.2 % (37.0-47.0); HEMOGLOBIN 10.8 gm/dL (12.0-15.0); MCH 27.6 pg (26.0-34.0); MCHC 32.5 g/dL (28.0-37.0); MCV 84.9 fL (80.0-100.0); RBC 3.91 mil/uL (4.20-5.00); RDW-CV 14.5 % (10.5-14.5); WBC 9.8 thou/uL (4.0-11.0)
[2018-10-10 04:51] LABS: CALCIUM 8.4 mg/dL (8.5-10.1); CREATININE 0.9 mg/dL (0.6-1.3); POTASSIUM 4.2 mmol/L (3.5-5.1)
--- NOTE | 2018-10-10 05:02 | NUR ---
ASSUMED PT CARE AT 1930. NURSING ASSESSMENT COMPLETED AT START OF SHIFT. PT VOICED NO CONCERNS THIS SHIFT. 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 HOURLY ROUNDING COMPLETED. FALL PRECAUTIONS IN PLACE. CALL LIGHT WITHIN REACH.
[2018-10-10 08:00] VITALS: BP 156/84
[2018-10-10 12:30] VITALS: BP 137/74
[2018-10-10 12:43] VITALS: BP 137/74
--- NOTE | 2018-10-10 14:28 | NUR ---
PATIENT ALERT AND ORIENTED X 2-3. UP TO BATHROOM WITH WALKER. FAMILY IN EARLIER. LAB CALLED POSITIVE BLOOD CULTURES FROM 10/08/18. DR HAMPTON NOTIFIED, ORDERS TO REPEAT BLOOD CULTURES. ASYMPTAMATIC. AFEBRILE. CONT. RATE CONTROLL DRUGS FOR TACHYCARDIA. NO SIGN OF DISTRESS.
--- NOTE | 2018-10-10 15:42 | NUR ---
SEEN BY DR IVORY. REPEAT BLOOD CULTURES DRAWN. CONT. NS AT 75 ML PER HOUR. CONT. ROCEPHIN. RESTING COMFORTABLY IN BED WITHOUT COMPLAINTS. CONT. WITH PLAN OF CARE AT THIS TIME.
[2018-10-10 20:54] VITALS: BP 161/78
[2018-10-11] VITALS: BP 167/88
[2018-10-11 04:58] LABS: CALCIUM 8.9 mg/dL (8.5-10.1); CREATININE 0.9 mg/dL (0.6-1.3); MAGNESIUM 1.6 mg/dL (1.8-2.4)
[2018-10-11 05:01] LABS: ABSOLUTE BASOPHILS 0.1 thou/uL (0.0-0.2); ABSOLUTE EOSINOPHILS 0.3 thou/uL (0.0-0.7); ABSOLUTE LYMPHOCYTES 1.3 thou/uL (0.8-5.3); ABSOLUTE MONOCYTES 0.6 thou/uL (0.0-1.2); ABSOLUTE NEUTROPHILS 5.5 thou/uL (1.6-8.1); BASOPHILS 0.9 %; EOSINOPHILS 3.3 %; HEMATOCRIT 36.3 % (37.0-47.0); HEMOGLOBIN 11.7 gm/dL (12.0-15.0); LYMPHOCYTES 16.7 %; MCHC 32.2 g/dL (28.0-37.0); MCV 83.9 fL (80.0-100.0); MONOCYTES 7.4 %; MPV 12.3 fl. (7.2-11.1); NUCLEATED RBCS 0 /100WBC; PLATELET COUNT* 106 thou/uL (150-400); POLYS 71.7 %; RBC 4.33 mil/uL (4.20-5.00); RDW-CV 14.5 % (10.5-14.5); WBC 7.7 thou/uL (4.0-11.0)
[2018-10-11 05:24] LABS: ANISOCYTOSIS 1+; GIANT PLATELETS FEW; LARGE PLATELETS FEW; PLATELET ESTIMATE DECREASED; POLYCHROMASIA 1+
[2018-10-11 05:25] LABS: OVALOCYTES Occasional
--- NOTE | 2018-10-11 07:06 | NUR ---
PT IS ABLE TO COMMUNICATE HER NEEDS TO STAFF WITH ONLY MINOR DIFFICULTY; SHE IS [id number] AND HAS SIGNIFICANT VISION LOSS. SHE HAS HAD POSITIVE BLOOD CULTURES; MD IS AWARE. BLOOD CULTURES REPEATED PER MD ORDER; RESULTS PENDING.
[2018-10-11 08:00] VITALS: BP 170/95
--- NOTE | 2018-10-11 10:58 | NUR ---
0756 ASSUMED CARE OF PATIENT. PLEASE SEE DOCUMENTED ASSESSMENT. PATIENT IS IN AFIB THAT INCREASES RATE WHEN ACTIVE
[2018-10-11 12:00] VITALS: BP 164/82
[2018-10-11 15:45] VITALS: BP 160/89
--- NOTE | 2018-10-11 17:25 | NUR ---
PATIENT PROGRESSING TOWARDS GOALS. REMAINS IN ATRIAL FIBRILLATION WITH RATE BETTER CONTROLLED AFTER EXTRA BETA ANGIE TODAY. APPETITE GOOD. AFEBRILE. UP TO WALK IN [place] WITH WALKER. SEVERAL VISITORS.
[2018-10-11 21:00] VITALS: BP 165/72
[2018-10-12] VITALS: BP 166/87
[2018-10-12 04:20] VITALS: BP 168/82
[2018-10-12 07:10] VITALS: BP 170/79
--- NOTE | 2018-10-12 07:48 | NUR ---
PT IS ABLE TO COMMUNICATE HER NEEDS TO STAFF WITH SOME DIFFICULTY; SHE IS [id number], HAS VISION LOSS, AND IS CONFUSED AT TIMES. SHE HAS DENIED THE NEED FOR PAIN MEDICATION UP TO THIS TIME. PT HAS HAD INCREASED CONFUSION STARTING THIS AM WHEN SHE WOKE UP; SHE HAS BEEN FORGETFUL WELL.
--- NOTE | 2018-10-12 09:25 | NUR ---
INITAL ASSESSMENT COMPLETED CHARTED. VSS. TRACING AFIB ON MONITOR. PT DENIES PAIN. PT BECOMES CONFUSED AT TIMES. NO FURTHER NEEDS NOTED AT THIS TIME. HOURLY ROUNDING AND FALL PRECAUTIONS IN PLACE. CLWR.
[2018-10-12 12:00] VITALS: BP 148/46
[2018-10-12 16:00] VITALS: BP 157/94
[2018-10-12 20:03] VITALS: BP 133/66
[2018-10-13] VITALS: BP 133/53; BP 135/64
[2018-10-13 04:00] VITALS: BP 111/54; BP 153/73
[2018-10-13 05:33] LABS: CALCIUM 8.8 mg/dL (8.5-10.1); CREATININE 0.9 mg/dL (0.6-1.3); MAGNESIUM 1.8 mg/dL (1.8-2.4)
--- NOTE | 2018-10-13 05:35 | NUR ---
PT IS ABLE TO COMMUNICATE HER NEEDS TO STAFF WITH SOME DIFFICULTY; SHE IS [id number], HAS VISION IMPAIRMENT, AND IS CONFUSED AT TIMES. CURRENT PAIN MEDICATION REGIMEN HAS BEEN ADEQUATE FOR CONTROLLING HER PAIN UP TO THIS TIME. POSSIBLE DISCHARGE LATER TODAY.
[2018-10-13 05:49] LABS: ABSOLUTE BASOPHILS 0.1 thou/uL (0.0-0.2); ABSOLUTE EOSINOPHILS 0.3 thou/uL (0.0-0.7); ABSOLUTE LYMPHOCYTES 1.6 thou/uL (0.8-5.3); ABSOLUTE MONOCYTES 0.6 thou/uL (0.0-1.2); ABSOLUTE NEUTROPHILS 3.5 thou/uL (1.6-8.1); BASOPHILS 0.9 %; EOSINOPHILS 4.4 %; HEMATOCRIT 38.2 % (37.0-47.0); HEMOGLOBIN 12.1 gm/dL (12.0-15.0); LYMPHOCYTES 25.9 %; MCH 26.5 pg (26.0-34.0); MCHC 31.7 g/dL (28.0-37.0); MCV 83.6 fL (80.0-100.0); MONOCYTES 10.4 %; MPV 12.1 fl. (7.2-11.1); NUCLEATED RBCS 0 /100WBC; PLATELET COUNT* 133 thou/uL (150-400); POLYS 58.4 %; RBC 4.57 mil/uL (4.20-5.00); RDW-CV 14.3 % (10.5-14.5)
[2018-10-13 08:11] VITALS: BP 164/83
--- NOTE | 2018-10-13 10:03 | H ---
[address] [address] HISTORY AND PHYSICAL Name: GAEL VIRGEN Room: [address] IN .R.#: [id number] Admission: 10/08/18 Attend Phys: Hannah Freidman Discharge: Date of : 32 Report #: [id number] THIS REPORT FOR: //name// CC: Pepper Cordon DATE OF SERVICE: 10/08/2018 CHIEF COMPLAINT: "I don't really know why I am here." HISTORY OF PRESENT ILLNESS: The patient is an 88-year-old female who does have history of AFib, CKD, previous stroke and possible dementia, presented to us here from [facility] secondary to dizziness and confusion. The patient per report apparently complained of lightheadedness and confusion while she was eating lunch. She was found confused and also hypotensive by EMS where she was given 500 mL of IV fluids en route and did some improvement. She, however, does not have any recollection of that event. She feels fine now. She denies any dizziness, no chest pain, no shortness of breath, no palpitations. She thinks she does have dementia. PAST MEDICAL HISTORY: AFib, hypertension, hyperlipidemia, CKD, stage 3. 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 PAST SURGICAL HISTORY: Left mastectomy in 1994, right knee replacement. CURRENT MEDICATIONS: Per report as the patient does not remember any of her medications include colestipol 1 gram p.o. b.i.d., aspirin 81 daily, diltiazem 180 b.i.d., Lasix 40 mg daily, cetirizine 10 mg daily, Caltrate 600, vitamin D 1 tab p.o. daily, apixaban 5 mg p.o. b.i.d., metoprolol 100 mg daily, vitamin A, C one each p.o. daily, omeprazole 20 mg b.i.d., potassium chloride 20 mEq p.o. daily, levothyroxine 150 mcg daily, albuterol 90 mcg inhaler as directed, melatonin 5 mg at bedtime, Tylenol 500 q.4 hours p.r.n. for pain, Lasix 20 mg daily, diltiazem 120 mg daily. ALLERGIES: LANSOPRAZOLE. FAMILY HISTORY: The patient does not remember. SOCIAL HISTORY: The patient lives in the correction. Denies any smoking, alcohol or illicit drug use. REVIEW OF SYSTEMS: The patient denies any fever or chills. She was complaining of some dizziness earlier. No chest pain. No shortness of breath. No nausea or vomiting. No palpitations. No dysuria. She has had confusion today. A 12-point review of system [place] [address] HISTORY AND PHYSICAL Name: GAEL VIRGEN Room: [address] IN [facility]#: [id number] Admission: 10/08/18 Attend Phys: Hannah Friedman Discharge: Date of : 32 Report #: [id number] PHYSICAL EXAMINATION: VITAL SIGNS: Temperature is 37.2, heart rate of 133, respiratory rate 18, blood pressure 105/45, and 97% on room air. GENERAL: The patient is alert. She is oriented to name. She is forgetful of the events, not in acute respiratory distress. HEENT: Normocephalic, atraumatic. Nares patent. Clear oropharynx. NECK: Supple. No lymphadenopathy. CARDIOVASCULAR: Tachycardic, irregular rhythm. No murmurs noted. RESPIRATORY: Clear to auscultation bilaterally. No wheezing or crackles. GASTROINTESTINAL: Abdomen is soft, nontender, nondistended. Good bowel sounds. No organomegaly. GENITOURINARY: Deferred. MUSCULOSKELETAL: Moves extremities well. NEUROLOGIC: She is alert and oriented to name. LABORATORY DATA: Reviewed and CBC showed a white count of 21.4, hemoglobin is 12.6, platelets 116, bands are 7, segs 84. INR is 1.1. Chemistry showed sodium 145, potassium is 2.9, chloride is 104, carbon dioxide is 24, BUN 20, creatinine is 1.3, glucose 128. Troponin is 0.06 and 0.07. IMAGING STUDIES: Head CAT scan done showed chronic changes, no acute intracranial process identified. Chest x-ray showed no acute cardiopulmonary process. EKG: AFib with rapid ventricular rate. IMPRESSION: The patient is an 88-year-old female admitted in the hospital for: 1. Septic shock secondary to urosepsis. 2. Mild troponin elevation may be secondary to atrial fibrillation, rule out non-ST elevation myocardial infarction. 3. Atrial fibrillation, rapid ventricular response. 4. Known hypertension, but currently is hypotensive. 5. Hyperlipidemia. 6. Chronic kidney disease, stage 3. 7. History of hypokalemia. PLAN: The patient will be admitted. I expect this patient is going to be here more than 2 midnights. Blood cultures have been drawn. We will follow them along with urine cultures. We will continue Rocephin that has been given in the ER. We will give her fluids. She already had recent echo, so I do not think we need to repeat that. I will ask Cardiology to see given that her AFib is not controlled and she does have borderline low blood pressure. She did respond to fluids earlier. We will hold most her blood pressure medications, but I would start a low dose beta she as her blood pressure did improve slightly after fluid boluses. I will hold her Lasix. I will continue the rest of her medications. Discussed with the patient regarding code status and she is not sure, but she thinks she wants to be resuscitated. She will be a full code for now. <ELECTRONICALLY SIGNED> By: Machelle Cordon MD 10/13/18 1003 1606 [id number] Cordon MD /nt
--- NOTE | 2018-10-13 12:06 | NUR ---
Nutrition: Pt assessed for admit DX sepsis. Wt: 162#. Eating fair amount of regular diet. Possible discharge today. BG ok, alb 2.7, prealb 13. IQUGMIUT, vision impairment, HTN, CAD. UTI. No nutrition interventions needed at this time. GOAL: good hydration, good po intake, good protein intake with meals. Mild risk at this time.
[2018-10-13 12:25] VITALS: BP 149/72
--- NOTE | 2018-10-13 13:19 | NUR ---
VSS, ASSUMED CARE IN THE AM, ASSESSMENT PERFORMED AND CHARTED, FALL PRECAUTION IN PLACE AND CALL LIGHT IN REACH, PT IS A&O2-3 SHE IS FORGETFUL AND CONFUSED AT TIMES, PT GOAL IS TO WALK THE UNIT IMPROVE LEVEL OF ALERTNESS AND DENIES ANY PAIN AND IS TRACING AFIB ON THE MONITOR, SHE IS UP AD [place] AND ON RA, WILL FOLLOW WITH PLAN OF CARE.
--- NOTE | 2018-10-13 14:46 | NUR ---
CONTINUE TO FOLLOW. MET WITH PT AND DARIEL/JUVENAL WHO IS DPOA. JUAN C FROM [facility] HERE EARLIER AND MET WITH THEM. DARIEL IN INTERESTED IN A HOSPICE EVAL. ORDER OBTAINED. PLAN IS FOR PT TO RETURN TO [facility] POSSIBLY TOMORROW. TO HAVE HOSPICE EVAL TODAY BY RN. CALL TO COV, HAD TO LEAVE MESSAGE. PT USES WALKER THERE. [facility] WILL PROVIDE TRANSPORT. WILL FOLLOW
[2018-10-13 16:42] VITALS: BP 133/75
[2018-10-13 20:16] VITALS: BP 147/53
[2018-10-14] VITALS: BP 171/80
[2018-10-14 04:00] VITALS: BP 144/75
--- NOTE | 2018-10-14 07:58 | NUR ---
PT IS ABLE TO COMMUNICATE HER NEEDS TO STAFF WITH SOME DIFFICULTY; SHE IS [id number], HAS BILATERAL VISION IMPAIRMENT, AND IS OFTEN CONFUSED AND FORGETFUL. SHE IS ALSO FREQUENTLY IMPULSIVE; CHAIR AND BED ALARMS IN PLACE AT ALL TIMES. POSSIBLE DISCHARGE TODAY.
[2018-10-14 09:16] VITALS: BP 145/78
--- NOTE | 2018-10-14 10:34 | NUR ---
ASSUMED CARE OF PT AROUND 0730 THIS AM. REFER TO ASSESSMENT. PT UP TO CHAIR AT BEDSIDE THIS AM. CHAIR ALARM IN PLACE. PT NOTED TO BE IMPULSIVE AND NONCOMPLIANT WITH FALL PRECAUTIONS. NO OTHER CONCERNS AT THIS TIME. CLWR. WCTM.
[2018-10-14 12:12] VITALS: BP 112/46
--- NOTE | 2018-10-14 13:30 | NUR ---
SPOKE WITH [facility], THEIR NURSE TO COME OUT THIS AFTERNOON TO DO EVAL FOR HOSPICE APPROPRIATENESS. DISCUSSED WITH DR HAMPTON, STILL AWAITING BC SENSITIVITY RESULTS. CALL TO LAB, SPOKE WITH CYNDIE, MAY BE BACK TODAY OR TOMORROW.
[2018-10-14 15:50] VITALS: BP 138/52
--- NOTE | 2018-10-14 16:15 | NUR ---
PT NOT PROGRESSING TOWARDS GOALS THIS SHIFT. AWAITING BLOOD CULTURES FROM LAB FOR DISCHARGE PLANNING. LAB COMPANY REPORTS TO EXPECT RESULTS TOMORROW. NO OTHER CONCERNS AT THIS TIME. CLWR. WCTM.
--- NOTE | 2018-10-14 18:09 | NUR ---
PT HAVING ALLERGIC REACTION TO TELE MONITOR STICKERS. PHYSICIAN NOTIFIED. NEW ORDERS FOR MED/SURG STATUS. PRN MALCOLM OBTAINED.
[2018-10-14 20:00] VITALS: BP 136/58
[2018-10-15 05:47] LABS: CALCIUM 8.6 mg/dL (8.5-10.1); CREATININE 1.1 mg/dL (0.6-1.3); MAGNESIUM 1.7 mg/dL (1.8-2.4)
--- NOTE | 2018-10-15 05:49 | NUR ---
PATIENT SLEPT MOST OF THE NIGHT. PATIENT REMAINS CONFUSED AND FORGETFUL BUT ONLY CLIMBING OUT OF BED WHEN NEEDING TO USE THE BATHROOM. PATIENT IS POSSIBLY BEING DISCHARGED TODAY. WILL CONTINUE TO MONITOR.
[2018-10-15 07:59] VITALS: BP 128/51
--- NOTE | 2018-10-15 09:40 | NUR ---
ASSUMED CARE OF PT AT 0730. PT RESTING IN RECLINER WAITING FOR BREAKFAST. PT A&0X2, FORGETFUL AND CONFUSED AT TIMES. PT IMPULSIVE AT TIMES. PT MED SURG STATUS. HISTORY OF AFIB NOTED. PT ON RA SAT UPPER 90'S. PT DENIES ANY PAIN OR SHORTNESS OF BREATH AT THIS TIME. PT UP WITH 1 ASSIST AND WALKER TO BATHROOM. PT GOAL FOR TODAY IS IV ANTIBIOTICS, REPLACE MAGNESIUM PER ELECTROLYTE PROTOCOL AND DISCHARGE PLANNING BACK TO [facility]. AM ASSESSMENT CHARTED. MEDICATIONS PER JUL. PT REPOSITIONS SELF WITH REMINDERS. HOURLY ROUNDING OBSERVED. BED IN LOW POSITION. BED ALARM IN PLACE. FALL PRECAUTIONS IN PLACE. CALL LIGHT WITHIN REACH. WILL CONTINUE PLAN OF CARE.
[2018-10-15 10:28] VITALS: BP 128/51
--- NOTE | 2018-10-15 12:30 | NUR ---
ORDERS RECEIVED FOR DC BACK TO [facility], CALLED AND SPOKE WITH TORI, THEY WILL ACCEPT BACK AND AWARE PT WILL BE ON [facility]. CALL TO [facility] AND FAXED DC ORDERS. DARIEL/JUVENAL TO PROVIDE TRANSPORT HOME AT [phone]. CHART COPIED. RN HAS NUMBER TO CALL REPORT
--- NOTE | 2018-10-15 13:16 | CON ---
[address] [address] CONSULTATION Name: GAEL VIRGEN Room: [address] IN .R.#: [id number] Admission: 10/08/18 Attend Phys: Hannah Friedman Discharge: Date of : 32 Report #: [id number] THIS REPORT FOR: //name// CC: Pepper Cordon DATE OF SERVICE: 10/09/2018 INPATIENT CONSULTATION REQUESTING PHYSICIAN: Machelle Cordon M.D. PRIMARY CARE PHYSICIAN: Pepper Riggins M.D. HEELER: Rojas Tyson M.D., [facility]. REASON FOR CONSULTATION: Atrial fibrillation. HISTORY OF PRESENT ILLNESS: The patient is an 88-year-old female admitted with infection and borderline sepsis and we are asked to see her because of her atrial fibrillation, which at one point was causing elevated heart rates, requiring an IV drip of Cardizem. She also had a slight cardiac troponin level in the setting of chronic stage 3 kidney disease. She, at this time, has no complaints of palpitations. She has been weaned off of IV Cardizem and is taking p.o. She is anticoagulated and denies numbness, weakness or visual changes. She has never had chest pressure or tightness. She has improved in regards to her urinary tract infection and is taking p.o. and ambulating. PAST MEDICAL HISTORY: She is followed by Dr. Holkins in our practice for persistent rate-controlled atrial fibrillation. She has remote history of CVA, chronic diastolic heart failure, thyroid disease, hypertension and chronic kidney disease. MEDICATIONS: Her home medications include baby aspirin, calcium carbonate, Zyrtec, Eliquis 5 mg p.o. b.i.d., Lasix 40 mg daily, Synthroid 50 mcg daily, Toprol-XL 50 mg p.o. b.i.d. and Cardizem 240 mg daily. SOCIAL HISTORY: She is a former smoker, none actively. She [place] [address] CONSULTATION Name: GAEL IVRGEN Room: [address]#: [id number] Admission: 10/08/18 Attend Phys: Hannah Friedman Discharge: Date of : 32 Report #: [id number] PAST SURGICAL HISTORY: She has had a prior coronary PCI, hip surgery and ankle surgery. REVIEW OF SYSTEMS: GASTROINTESTINAL: No nausea, vomiting or hematemesis. MUSCULOSKELETAL: No falls. Positive weakness. GENERAL: No fevers or chills. CARDIOVASCULAR: No palpitations, no chest pain, no orthopnea, no PND. SKIN: No rashes. PHYSICAL EXAMINATION: VITAL SIGNS: Blood pressure is 134/68, pulse is 100 and temperature is 36.7. GENERAL: This is a thin elderly female. She is somewhat of a poor historian. She is in no apparent distress. HEENT: Eyes, EOMs intact. No facial asymmetry. NECK: Supple. CARDIOVASCULAR EXAMINATION: Irregular. I cannot hear a murmur. LUNGS: Clear to auscultation bilaterally. ABDOMEN: Nontender. EXTREMITIES: No peripheral edema. NEUROLOGIC: There are no other focal deficits. DIAGNOSTIC DATA: Electrocardiogram on presentation showed atrial fibrillation, rate 95, PVC, normal ST segments and borderline LVH. LABORATORY DATA: Hemoglobin is 10.9, white blood cell count is 21 and platelet count is 96,000. Sodium is 139, potassium is 4.7, BUN is 21 and creatinine is 1.2. Troponin I is 0.09, 0.07 and 0.07. IMAGING: Chest x-ray, no acute process. Head CT, chronic changes as noted above. IMPRESSION: 1. Urosepsis. This seemingly has resolved. 2. Abnormal cardiac troponin level. This is likely in the setting of kidney disease, hypotension due to sepsis and is more physiologic rather than an acute coronary syndrome. I would not pursue further workup. 3. Coronary artery disease. She reports no angina. I will continue with current medical therapy, including beta blockers and a low-dose aspirin. 4. Atrial fibrillation, persistent. This is rate controlled. I will keep her on current medical therapy and anticoagulation based on her elevated CHADs-VASc score, which is 5. <ELECTRONICALLY SIGNED> By: Cam Duncan MD, FACC 10/15/18 1316 1327 [id number] Duncan MD, FACC /nt
--- NOTE | 2018-10-15 14:08 | NUR ---
DISCHARGE ORDERS RECEIVED. DISCHARGE INSTRUCTIONS, CARE NOTES, AND FOLLOW UP APPTS COPIED AND GIVEN TO PT AND PT NIECE. REPORT CALLED TO LEONARDO AT [facility] [place]. PT MED SURG STATUS. IV REMOVED. PT DISCHARGED WITH ALL BELONGINGS AND PAPERWORK VIA WHEELCHAIR WITH NURSING STAFF TO NIECE'S OWN PERSONAL VEHICLE.
== END 2018-10-15 14:13 | disposition hospice, home (50) | DRG 871 ==
LOC: M.ERS 13:00 → M.TBA-ER 14:50 → M.2W 14:50
PROVIDERS: Family Medicine; ADMIT Internal Medicine
DX: A41.9 Sepsis, unspecified organism (principal); R65.21 Severe sepsis with septic shock; G93.41 Metabolic encephalopathy; N39.0 Urinary tract infection, site not specified; I48.1 Persistent atrial fibrillation; I12.9 Hypertensive chronic kidney disease with stage 1 through stage 4 chronic kidney disease, or unspecified chronic kidney disease; Z96.651 Presence of right artificial knee joint; E78.00 Pure hypercholesterolemia, unspecified; N18.3 Chronic kidney disease, stage 3 (moderate); J45.909 Unspecified asthma, uncomplicated; E87.6 Hypokalemia; R31.9 Hematuria, unspecified; I25.10 Atherosclerotic heart disease of native coronary artery without angina pectoris; E78.5 Hyperlipidemia, unspecified; Z86.73 Personal history of transient ischemic attack (TIA), and cerebral infarction without residual deficits; Z90.12 Acquired absence of left breast and nipple; Z79.899 Other long term (current) drug therapy; Z88.8 Allergy status to other drugs, medicaments and biological substances; Z95.5 Presence of coronary angioplasty implant and graft

== ENCOUNTER → 2019-11-10 | Outpatient (CLI) | payer OTHER ==
[~2019-11-10] MED LIST changes: +CARDIZEM CD120 MG PO; +LASIX 20 MG TAB20 MG PO; +MELATONIN5 M1 PO; +PROAIR RESPICL90 MCG INH; +TYLENOL EXTRA500 MG PO
--- NOTE | 2019-11-10 13:51 | 2DMMODE ---
[place] [address] 2 D/M-MODE ECHOCARDIOGRAM Name: VIRGENGAEL Luiz Room: [facility]#: [id number] Admission: 11/10/19 Attend Phys: Hannah De Jesus Discharge: Date of : 34 Date of Service: 11/10/19 1351 Report #: [id number] THIS REPORT FOR: cc: Pepper Riggins MD, Lin W. MD Liston, Michael J. MD [facility] ~ APPROVED REPORT Study performed: 11/10/2019 10:03:05 EXAM: Comprehensive 2D, Doppler, and color-flow Echocardiogram Patient Location: Out-Patient BSA: 1.76 HR: 98 bpm BP: 122/70 mmHg Other Information Study Quality: Fair Indications Congestive Heart Failure Dyspnea 2D Dimensions IVSd: 9.92 (7-11mm) LVOT Diam: 19.87 (18-24mm) LVDd: 38.77 mm PWd: 8.80 (7-11mm) Ascending Ao: 23.19 (22-36mm) LVDs: 21.84 (25-40mm) Aortic Root: 22.45 mm Volumes Left Atrial Volume (Systole) LA ESV Index: 19.10 mL/m2 Aortic Valve AoV Peak Abhi.: 1.43 m/s AO Peak Gr.: 8.13 mmHg LVOT Max P.78 mmHg AO Mean Gr.: 4.27 mmHg LVOT Mean P.36 mmHg LVOT Max V: 0.83 m/s AO V2 VTI: 19.81 cm LVOT Mean V: 0.53 m/s NANDO (VTI): 2.10 cm2 LVOT V1 VTI: 13.39 [place] [address] 2 D/M-MODE ECHOCARDIOGRAM Name: GAEL VIRGEN Room: [facility]#: [id number] Admission: 11/10/19 Attend Phys: Hannah De Jesus Discharge: Date of : 34 Date of Service: 11/10/19 1351 Report #: [id number] MV Decel. Time: 116.61 ms MV PHT: 33.82 ms MVA (PHT): 6.51 cm2 TDI Medial E' Abhi.: 0.09 m/s Lateral E' Abhi.: 0.09 m/s Pulmonary Valve PV Peak Abhi.: 0.82 m/s PV Peak Gr.: 2.68 mmHg Tricuspid Valve RAP Estimate: 5.00 mmHg TR Peak Gr.: 21.34 mmHg RVSP: 26.34 mmHg PA Pressure: 26.34 mmHg Left Ventricle The left ventricle is normal size. There is normal LV segmental wall motion. There is normal left ventricular wall thickness. Left ventricular systolic function is normal. LVEF is 65-70%. This study is not technically sufficient to allow evaluation of the LV diastolic function due to atrial fibrillation. Right Ventricle The right ventricle is normal size. The right ventricular systolic function is normal. Atria Left atrium is moderately dilated. Right atrium is mildly dilated. Aortic Valve Mild aortic valve sclerosis. Mild aortic regurgitation. Mild aortic stenosis. Mitral Valve Mitral valve leaflets are mildly thickened. Mild mitral annular calcification. Mild mitral regurgitation. No evidence of mitral valve stenosis. Tricuspid Valve The tricuspid valve is normal in structure. Mild tricuspid regurgitation. The RVSP is 30-35 mmHg. Pulmonic Valve The pulmonary valve is normal in structure. [place] [address] 2 D/M-MODE ECHOCARDIOGRAM Name: GAEL VIRGEN Room: [facility]#: [id number] Admission: 11/10/19 Attend Phys: Hannah De Jesus Discharge: Date of : 34 Date of Service: 11/10/19 1351 Report #: [id number] valvular regurgitation. Great Vessels The aortic root is normal in size. IVC is normal in size and collapses >50% with inspiration. Pericardium There is no pericardial effusion. <Conclusion> The left ventricle is normal size. There is normal left ventricular wall thickness. Left ventricular systolic function is normal. LVEF is 65-70%. This study is not technically sufficient to allow evaluation of the LV diastolic function due to atrial fibrillation. Left atrium is moderately dilated. Right atrium is mildly dilated. Mild aortic valve sclerosis. Mild aortic regurgitation. Mild aortic stenosis. Mitral valve leaflets are mildly thickened. Mild mitral annular calcification. Mild mitral regurgitation. Mild tricuspid regurgitation. The RVSP is 30-35 mmHg. IVC is normal in size and collapses >50% with inspiration. <ELECTRONICALLY SIGNED> By: Song Sousa MD, [facility] 11/10/19 1351 1351 1351 Song Sousa MD, FACC /INF
== END ==
LOC: M.CRD 09:52
PROVIDERS: ATTEND Internal Medicine
DX: I08.3 Combined rheumatic disorders of mitral, aortic and tricuspid valves (principal); I48.21 Permanent atrial fibrillation; I11.0 Hypertensive heart disease with heart failure; I50.32 Chronic diastolic (congestive) heart failure